=== PATIENT | female | born 1995 | race Caucasian/White ===

== ENCOUNTER 2018-11-11 00:52 | Emergency (ER) | payer SELFPAY ==
[~2018-11-11] VITALS: Ht 167.6 cm; Wt 63.5 kg
--- NOTE | 2018-11-11 02:09 | NUR ---
Pt offered evaluation by social service technician. Refused to stay night. Risk and benefits explained x 3. Pt will discharge tonight stating that she has a place to stay tonight.
[2018-11-11 02:40] VITALS: BP 149/98
== END 2018-11-11 02:40 | disposition home or self-care (01) ==
LOC: ER 00:54
DX: F19.90 Other psychoactive substance use, unspecified, uncomplicated (principal)
CPT/HCPCS: A4663